=== PATIENT | female | born 1935 | race Caucasian/White ===

== ENCOUNTER → 2016-12-05 | Outpatient (CLI) | payer MEDICARE ==
[~2016-12-05] MED LIST: /PANT40TA PO; ALEV220T26 PO; ANAS1TAB PO; BRIM2OPD OD; CALC500T36 PO; COUM2.5T17 PO; DORZ2OPD OU; LATA5OPD OD; MULTCAP PO; NAPR250T PO; PANT40TA2 PO; PERC5TAB12 PO; PRAV40TA2 PO; REST0.05 OU; TRAM50TA2 PO; TYLE325T5 PO; zioptan OU
--- NOTE | 2016-12-05 11:49 | RADONC ---
RADIATION ONCOLOGY FOLLOWUP NOTE DATE: 12/05/2016 CHART NUMBER: [id number] DIAGNOSIS: Right breast cancer. STAGE: IA, [id number]. ECOG PERFORMANCE STATUS: 0 FOLLOWUP NOTE: Ms. 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 The patient presents today reporting that she is doing quite well with no complaints at this time related to her radiation therapy or disease. She has no breast or bone pain. REVIEW OF SYSTEMS: The patient's review of systems is noncontributory. She denies nausea, vomiting, fevers, chills, night sweats, diplopia, headaches, anxiety or depression, anorexia, weight loss, visual disturbances, chest pain, urinary or bowel difficulties, bone pain, or neurological problems. PHYSICAL EXAMINATION: The patient is a well-developed, well-nourished white female in no acute distress. HEENT exam is normocephalic, atraumatic. Extraocular movements are intact. There is no palpable cervical, supraclavicular, infraclavicular, axillary, or inguinal lymphadenopathy present. Lungs are clear to auscultation and percussion. Heart has a regular rate and rhythm. Abdomen is benign with no hepatosplenomegaly, masses, or tenderness. Breast examination reveals no masses or discharge bilaterally. Skeletal examination reveals no tenderness to pressure or percussion of the bony skeleton. Extremities reveal no clubbing, cyanosis, or edema. Neurologic exam is grossly intact, as is the remainder of the physical examination. ASSESSMENT: The patient is clinically LIEN at this time and will be seen by us again in 6 months for further followup. She will also continue to be followed by her other physicians as well. cc: MD Freeman Velasquez MD Manoj Vora, MD
== END ==
LOC: M ONCR 09:48
PROVIDERS: ATTEND Radiology Radiation Oncology
DX: C50.511 Malignant neoplasm of lower-outer quadrant of right female breast (principal)

== ENCOUNTER → 2017-02-04 | Outpatient (CLI) | payer MEDICARE ==
[2017-02-04 12:03] LABS: MEAN CORPUSCULAR HGB CONC 33.6 g/dl (32.0-36.5); MEAN CORPUSCULAR VOLUME 95.4 fl (80.0-96.0); RED CELL DISTRIBUTION WIDTH 11.9 % (11.5-14.5); WHITE BLOOD COUNT 6.2 K/mm3 (4.0-10.0)
[2017-02-04 12:04] LABS: INR 0.88
[2017-02-04 12:38] LABS: ALBUMIN 3.6 GM/DL (3.2-5.2); ALBUMIN/GLOBULIN RATIO 1.24 (1.00-1.93); ALKALINE PHOSPHATASE 73 U/L (45-117); ALT/SGPT 15 U/L (12-78); ANION GAP 8 MEQ/L (8-16); AST/SGOT 11 U/L (15-37); BILIRUBIN,TOTAL 0.4 MG/DL (0.2-1.0); BLOOD UREA NITROGEN 15 MG/DL (7-18); CALCIUM LEVEL 8.8 MG/DL (8.8-10.2); CARBON DIOXIDE LEVEL 27 MEQ/L (21-32); CHLORIDE LEVEL 109 MEQ/L (98-107); CREATININE FOR GFR 0.87 MG/DL (0.55-1.02); GLOMERULAR FILTRATION RATE > 60.0 (>39); GLUCOSE, FASTING 90 MG/DL (83-110); POTASSIUM SERUM 3.9 MEQ/L (3.5-5.1); SODIUM LEVEL 144 MEQ/L (136-145); TOTAL PROTEIN 6.5 GM/DL (6.4-8.2)
--- NOTE | 2017-02-04 13:04 | REP ---
PA and lateral chest: Comparison is 10/04/2014. The lung mccoy are clear. The cardiac size is normal The ashley, mediastinum, and bony thorax are unremarkable. Faintly visible surgical clips are again noted in the right axilla. There is thoracic scoliosis convex right. Impression: Negative PA and lateral chest. There is no interval change. Signed by Dylan Greco MD 02/04/2017 12:56 P
--- NOTE | 2017-02-06 21:39 | ECGEPIP ---
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
== END ==
LOC: M ADMPAT 10:36
PROVIDERS: ATTEND Orthopaedic Surgery
DX: M17.12 Unilateral primary osteoarthritis, left knee (principal); Z79.01 Long term (current) use of anticoagulants

== ENCOUNTER 2017-02-18 09:45 | Inpatient (IN) | payer MEDICARE ==
[2017-02-04 11:36] VITALS: BP 126/86
--- NOTE | 2017-02-12 10:08 | HPE ---
DATE OF ADMISSION: 02/18/2017 ATTENDING PHYSICIAN: Dr. Darden CHIEF COMPLAINT: Left knee pain and stiffness. HISTORY: This a pleasant 81-year-old female patient with progressively worsening left knee pain and stiffness. She has failed to improve with conservative management. She has pain with weightbearing activities and activities of daily living. She has elected for surgery for continued symptoms. She has consented for a left total knee arthroplasty by Dr. Darden. X-rays are notable for end-stage degenerative changes of the left knee. Medical optimization with Dr. Greene, not present for review today. ALLERGIES: None. CURRENT MEDICATIONS: - Zioptan 0.0015% 1 drop in each eye twice a day - adult multivitamin - calcium 600 mg 1 tablet twice a day - pantoprazole 40 mg 1 tablet once per day - anastrozole 1 mg 1 tablet once per day - pravastatin 40 mg 1 tablet once per day - dorzolamide 2% 1 drop in the right eye twice a day She will bring her eye drops to the hospital. She knows not to use NSAIDS prior to surgery. MEDICAL HISTORY (Includes): 1. Symptomatic osteoarthritis left knee. 2. Elevated cholesterol. 3. Glaucoma. 4. Gastric reflux disease. SURGERY HISTORY (Includes): 1. Gallbladder removed. 2. Lumpectomy. FAMILY HISTORY: Noncontributory. SOCIAL HISTORY: She does not smoke. She does not use alcohol. She is retired. REVIEW OF SYSTEMS: Denies fever or chills. Denies chest pain, shortness breath or cough. Denies difficulty breathing. Denies abdominal pain. Denies nausea or vomiting. Denies chest pain. Denies shortness breath. Denies recent URI or UTI symptoms. Denies change in bowel or bladder habits. Denies nausea or vomiting. Has persistent pain in her left knee with weightbearing activities. PHYSICAL EXAMINATION: Today, reveals an alert, well-nourished, well-developed female patient. She ambulates with a slight limping gait favoring her left side. She does not use assistive devices. Her mood and affect are appropriate for the situation. Examination of the left knee reveals the skin to be intact. No erythema, edema or ecchymosis. Good knee range of motion. Stable to varus and valgus stress. Some irritability at the extremes of range of motion. Tenderness mainly medially. The calf is soft and nontender to palpation. She can sensate light touch. Neck is supple without adenopathy or jugular venous distention (JVD). Lungs are clear to auscultation without rales or wheeze. Heart: Regular rate and rhythm. Abdomen: Bowel sounds are present. Height 63 inches. Weight 153 pounds. Temperature 98.3. Pulse 76. Respirations 16. Blood pressure 134/80. LABORATORY DATA: PT 12.0. INR 0.88. Urine culture no growth. Sed rate 25. Urinalysis 1+ blood, otherwise within normal limits. Nasal culture normal wolf. Glucose 90, BUN 15, creatinine 0.87. Sodium 144, potassium 3.9. WBC count 6.2, RBC count 3.9, hemoglobin 12.8, hematocrit 38.0. EKG sinus rhythm. Chest x-ray no acute cardiopulmonary disease process noted. IMPRESSION: Symptomatic osteoarthritis left knee. PLAN: Consented for a left total knee arthroplasty by Dr. Darden.
[~2017-02-18] VITALS: Ht 158.8 cm; Wt 71.2 kg
[~2017-02-18 09:45] MED LIST changes: -PERC5TAB12 PO
[2017-02-18] MEDS ORDERED: LR 1,000 ML IV ONE (11:30)
[2017-02-18] MEDS ORDERED: ceFAZolin SOD 1 GM in D5W MINI-BAG PLUS 50 ML IV ONE (11:45)
[2017-02-18] MEDS ORDERED: ANAS1TAB PO (12:00)
[2017-02-18] MEDS ORDERED: fentaNYL 100 MCG/2 ML INJECTION (J3010) As Ordered ONE ×2 (13:35→16:24)
[2017-02-18] MEDS ORDERED: MIDAZOLAM INJ 2 MG/2 ML VIAL (J2250) As Ordered ONE ×2 (13:35→15:04)
[2017-02-18] MEDS ORDERED: EPINEPHrine INJ 1 MG/ML 1ML AMP As Ordered ONE (14:28)
[2017-02-18] MEDS ORDERED: TRANEXAMIC ACID 100 MG/ML 10ML VIAL As Ordered ONE (14:28)
[2017-02-18] MEDS ORDERED: ceFAZolin 1GM INJ (J0690) As Ordered ONE (14:28)
[2017-02-18] MEDS ORDERED: BUPIVACAINE LIPOSOME/PF 1.3% 20 ML VIAL (13.3MG/ML)(EXPAREL) As Ordered ONE (14:28)
[2017-02-18] MEDS ORDERED: fentaNYL 100 MCG/2 ML INJECTION (J3010) IV ONE ×2 (14:30→14:45)
[2017-02-18] MEDS ORDERED: MIDAZOLAM INJ 2 MG/2 ML VIAL (J2250) IV ONE ×2 (14:30→14:45)
[2017-02-18] MEDS ORDERED: KETAMINE HCL 200 MG/20 ML VIAL As Ordered ONE (15:31)
[2017-02-18] MEDS ORDERED: MORPHINE 1MG/ML IN 0.9% NACL 100ML IV BAG As Ordered ONE (16:24)
[2017-02-18] MEDS ORDERED: PERCOCET 5MG/325MG TAB As Ordered ONE (16:52)
[2017-02-18] MEDS ORDERED: MORPHINE 10 MG/ML 1ML VIAL As Ordered ONE (16:52)
[2017-02-18] MEDS ORDERED: fentaNYL 100 MCG/2 ML INJECTION (J3010) IV PRN (17:00)
[2017-02-18] MEDS ORDERED: LR 1,000 ML IV SCH (17:00)
[2017-02-18] MEDS ORDERED: MORPHINE 1MG/ML IN 0.9% NACL 100ML IV BAG IV PRN (17:00)
[2017-02-18] MEDS ORDERED: METOCLOPRAMIDE INJ 10MG/2ML VIAL (J2765) IV PRN (17:00)
[2017-02-18] MEDS ORDERED: NALOXONE INJ 0.4 MG/1 ML VIAL (J2310) IV PRN (17:00)
[2017-02-18] MEDS ORDERED: ONDANSETRON 4MG/2ML VIAL (J2405) IV PRN ×3 (17:00)
[2017-02-18] MEDS ORDERED: WARFARIN SOD 5 MG TAB PO ONE (17:00)
[2017-02-18] MEDS ORDERED: ACETAMINOPHEN TAB 650MG DOSE (2X325MG) PO PRN (17:00)
[2017-02-18] MEDS ORDERED: MORPHINE 2 MG/ML 1ML SYRINGE IV PRN (17:00)
[2017-02-18] MEDS ORDERED: EPIDURAL/PCA KEYS XX PRN (17:00)
[2017-02-18] MEDS ORDERED: NALBUPHINE HCL 10 MG/ML AMP (J2300) IV PRN (17:00)
[2017-02-18] MEDS ORDERED: PERCOCET 5MG/325MG TAB PO PRN (17:00)
[2017-02-18] MEDS ORDERED: diphenhydrAMINE INJ 50MG/ML VIAL (J1200) IV PRN (17:00)
[2017-02-18] MEDS ORDERED: FLEET ENEMA PR PRN (17:00)
[2017-02-18] MEDS: LR 1,000 ML IV SCH (18:25)
[2017-02-18 19:00] VITALS: BP 133/74
[2017-02-18 20:00] VITALS: BP 118/64
[2017-02-18] MEDS: LATANOPROST 0.005% OPHTH SOLN 2.5 ML OU SCH (20:00)
[2017-02-18] MEDS: PRAVASTATIN 20 MG TAB PO SCH (20:00)
[2017-02-18] MEDS: DORZOLAMIDE 2% OPHTH SOLN 10 ML BTL OU SCH (20:01)
[2017-02-18 20:05] VITALS: O2SAT 96
--- NOTE | 2017-02-18 20:40 | IPNPDOC ---
Subjective Date Seen The patient was seen on 02/18/17. Subjective Chief Complaint/HPI The patient is a 81-year-old female admitted with a reason for visit of Left Knee Arthritis. Events since last encounter Patient having some lower extremity pain, no chest pain, not short of breath, not a particularly useful historian Objective Physical Examination General Exam: Positive: Alert (sleepy in postop area) ENT Exam: Positive: Mucous membr. moist/pink Chest Exam: Positive: Diminished, Negative: Rales, Rhonchi, Wheezing Heart Exam: Positive: Rate Normal, Regular Rhythm Abdomen Exam: Positive: BS Hypoactive, Soft, Negative: Tenderness Assessment /Plan Problems (1) Osteoarthritis Status: Acute Problem Text: pain management, dvt prophylaxis, gi regimen, discharge per ortho (2) HLD (hyperlipidemia) Status: Chronic Problem Text: continue statin (3) History of breast cancer Status: Chronic Problem Text: continue anastrozole (from home) (4) GERD (gastroesophageal reflux disease) Status: Chronic Problem Text: continue PPI Plan/VTE VTE Prophylaxis Ordered?: Yes VS, I&O, 24H, Fishbone Vital Signs/I&O Vital Signs Date Time Temp Pulse Resp B/P (MAP) Pulse Ox O2 Delivery O2 Flow Rate FiO2 02/18/17 18:00 Nasal Cannula 2.0 02/18/17 17:45 97.1 67 16 123/77 (92) 96 RATNA TERAN MD Feb 18, 2017 20:40
[2017-02-18 21:00] VITALS: BP 114/57
[2017-02-18 22:00] VITALS: BP 109/62
[2017-02-18] MEDS: ceFAZolin SOD 1 GM in D5W MINI-BAG PLUS 50 ML IV SCH (22:20)
[2017-02-19 02:00] VITALS: BP 106/56
[2017-02-19 06:00] VITALS: BP 118/62
[2017-02-19] MEDS: LR 1,000 ML IV SCH (06:20)
[2017-02-19] MEDS: ceFAZolin SOD 1 GM in D5W MINI-BAG PLUS 50 ML IV SCH (06:24)
[2017-02-19] MEDS ORDERED: PERCOCET 5MG/325MG TAB PO PRN (06:45)
[2017-02-19 07:37] LABS: MEAN CORPUSCULAR HEMOGLOBIN 32.9 pg (27.0-33.0); MEAN CORPUSCULAR HGB CONC 34.5 g/dl (32.0-36.5); MEAN CORPUSCULAR VOLUME 95.2 fl (80.0-96.0); RED CELL DISTRIBUTION WIDTH 11.7 % (11.5-14.5); WHITE BLOOD COUNT 8.2 K/mm3 (4.0-10.0)
[2017-02-19 07:41] LABS: INR 1.33
[2017-02-19] MEDS: MIRALAX *UNIT DOSE* 17GM PACKET PO SCH (09:00)
[2017-02-19] MEDS: MOM 30ML SUSPENSION UDC PO SCH (09:00)
[2017-02-19] MEDS: PANTOPRAZOLE 40MG TAB (PROTONIX) PO SCH (09:07)
[2017-02-19] MEDS: ONDANSETRON 4 MG TAB (S0181) PO PRN ×2 (09:07→17:28)
[2017-02-19] MEDS: LATANOPROST 0.005% OPHTH SOLN 2.5 ML OU SCH ×2 (09:08→21:24)
[2017-02-19] MEDS: SENOKOT S TAB PO SCH ×2 (09:08→21:23)
[2017-02-19] MEDS: PERCOCET 5MG/325MG TAB PO PRN ×3 (09:09→21:24)
[2017-02-19] MEDS ORDERED: ONDANSETRON 4MG/2ML VIAL (J2405) IV PRN (09:30)
[2017-02-19 10:00] VITALS: BP 126/62
[2017-02-19] MEDS: DORZOLAMIDE 2% OPHTH SOLN 10 ML BTL OU SCH ×2 (10:15→21:24)
--- NOTE | 2017-02-19 10:29 | REP ---
LEFT KNEE SERIES: Two views. HISTORY: Check placement. FINDINGS: A left knee arthroplasty has been installed. Anterior skin enid are seen. The patellar, tibial, and femoral prosthetic components are well aligned with respect to each other and with respect to their [place] bones. There is some periarticular soft tissue swelling and postoperative emphysema. Signed by Sky Gaspar MD 02/19/2017 11:07 A
--- NOTE | 2017-02-19 11:05 | IPNPDOC ---
Subjective Date Seen The patient was seen on 02/19/17. Subjective Chief Complaint/HPI The patient is a 81-year-old female admitted with a reason for visit of Left Knee Arthritis. Events since last encounter no complaints today. no chest pain or sob , no abdominal pain , no nausea or vomiting or diarrhea. Objective Physical Examination General Exam: Positive: Alert (sleepy in postop area) Eye Exam: Positive: PERRLA, Conjunctiva & lids normal, EOMI, Negative: Sclera icteric ENT Exam: Positive: Mucous membr. moist/pink Chest Exam: Positive: Diminished, Negative: Rales, Rhonchi, Wheezing Heart Exam: Positive: Rate Normal, Regular Rhythm Abdomen Exam: Positive: BS Hypoactive, Soft, Negative: Tenderness Extremity Exam: Positive: Normal pulses, Negative: Clubbing, Cyanosis, Edema Assessment /Plan Problems (1) S/P total knee arthroplasty Status: Acute Problem Text: left total knee arthroplasty elective for advanced osteoarthritis. pain management, dvt prophylaxis, gi regimen, discharge per ortho (2) HLD (hyperlipidemia) Status: Chronic Problem Text: continue statin (3) History of breast cancer Status: Chronic Problem Text: continue anastrozole (from home) (4) GERD (gastroesophageal reflux disease) Status: Chronic Problem Text: continue PPI (5) Glaucoma Status: Chronic Plan/VTE VTE Prophylaxis Ordered?: Yes VS, I&O, 24H, Fishbone Vital Signs/I&O Vital Signs Date Time Temp Pulse Resp B/P (MAP) Pulse Ox O2 Delivery O2 Flow Rate FiO2 02/19/17 09:39 16 02/19/17 06:00 97.9 64 118/62 (80) 98 Nasal Cannula 2.0 02/18/17 20:05 96 I&O- Last 24 Hours up to 6 AM 02/19/17 06:00 Intake Total 2310 ml Output Total 750 ml Balance 1560 ml Laboratory Data 24H LABS Laboratory Tests 2 02/19/17 07:14: Prothrombin Time 16.8H, Prothromb Time International Ratio 1.33 CBC/BMP Laboratory Tests 02/19/17 07:14 Red Blood Count 3.09 L, Mean Corpuscular Volume 95.2, Mean Corpuscular Hemoglobin 32.9, Mean Corpuscular Hemoglobin Concent 34.5, Red Cell Distribution Width 11.7 CORDELL ZAPATA MD Feb 19, 2017 11:05
--- NOTE | 2017-02-19 11:51 | IPN ---
DATE: 02/18/2017 The patient is seen and examined. She wished to go ahead with a left total knee arthroplasty. She understands the nature of this. The risks of bleeding, infection, damage to nerves, vessels, persistent pain, wear loosening, blood clots, medical problems, among others. She has had a preop medical clearance. She has been through a recent contralateral knee replacement.
[2017-02-19 14:00] VITALS: BP 125/67
[2017-02-19] MEDS ORDERED: WARFARIN SOD 5 MG TAB PO ONE (17:00)
--- NOTE | 2017-02-19 20:57 | RO ---
DATE OF PROCEDURE: 02/18/2017 PREOPERATIVE DIAGNOSIS: Left knee osteoarthritis. POSTOPERATIVE DIAGNOSIS: Left knee osteoarthritis. PROCEDURE: Left total knee arthroplasty using a PFC rotating platform size 2.5 femur 2.5 tibia 32 patellar button and 12.5 polyethylene. SURGEON: Dr. Rohith Darden. ASSOCIATE ATTORNEY: Skinny Alford ANESTHESIA: Spinal ESTIMATED BLOOD LOSS: Less than 50. COMPLICATIONS: None. INDICATIONS: This is a 81-year-old woman who has had some persistent left knee pain related to underlying arthritis. She did well with a right knee replacement in the past and wished to go ahead with the left knee replacement having failed conservative management. She understood the nature of procedure the risks of bleeding, infection, damage to nerves, vessels, persistent pain, wear, loosening, blood clots, medical problems, among others. PROCEDURE: The patient taken to the operating room and placed in supine position after spinal anesthesia was induced. The left lower extremity was prepped and draped in the usual sterile fashion. A time-out was performed. Tourniquet was inflated. I created a longitudinal incision over the anterior aspect of the left knee. Sharp dissection was carried down through subcutaneous tissue to create a medial parapatellar arthrotomy per routine, everted the patella, flexed the knee up removed any osteophytes and used the canal initiating reamer followed by the intramedullary reamer set at 5 and valgus 10 mm cut and pinned this in place on the distal aspect of the femur. I brought it back 2 more mm because she had a flexion contracture and made the distal femoral cut protecting soft tissues. I sized it to be between a 3 and 2.5. The external rotation guide was placed and pinned and then the 4-in-1 cutting block was placed and the remaining four cuts were made protecting soft tissues. I used the tibial guide. The appropriate amount of posterior slope and valgus, pinned this in place checked it with the external alignment guide and then removed 4 mm off the low side 10 mm off the high side with the oscillating saw. Then rate and cost analyst was used, we removed soft tissue and some osteophytes from both sides of the knee. I then used the spacer blocks and a size 12.5 seemed to be the most appropriate fit. In flexion/extension there was excellent soft tissue balance, excellent alignment and range of motion. The tibial tray was then placed, sized to be a 2.5. This was pinned in place, drilled broached. The trial components were then placed and the components fit very nicely and alignment is good and the fit was excellent. Soft tissue balance was excellent. We then freehand cut the patella and removed about 6-7 mm of bone from the patella and sized to be a 32. Drill holes were placed and the trial button was placed. We put the knee through range of motion and again very satisfied with the components. The drill holes were then placed at the end of the femur and then we removed the trial components, irrigated copiously. I placed some of the long acting Marcaine suspension solution in the capsule region withdrawing so I did not inject intravascularly and around the periosteum. The bony surfaces were irrigated, dried carefully. The assistant general manager prepared the bone cement in modern technique. I then cemented on the tibial component packed in place removed excess bone. The tibial tray was placed followed by the femoral component cemented in place the usual fashion. Removed excess bone cement. We cemented on the patella, held this in place with a patellar clamp and removed excess bone cement. I completed the injection for postoperative pain control throughout the knee and the capsular region and the quadriceps patellar fat pad region and etc. Irrigation was performed. Once the cement hardened I removed the patellar clamp. Closed the deep layer was some interrupted #1 Vicryl sutures followed by a running Stratafix suture starting at the midpoint and working in each direction obtaining a watertight closure. Final irrigation was performed, closed subcu with 2-0 Vicryl. The skin with enid. The knee had excellent range of motion and excellent alignment and full extension. Sterile dressing was applied. Tourniquet was deflated. She was taken to recovery room in stable condition. No known complications. The plan will be routine postop. The assistant general manager was instrumental in holding retractors and making one of the bone cuts and assisting in closure.
[2017-02-19] MEDS: PRAVASTATIN 20 MG TAB PO SCH (21:23)
[2017-02-19 22:00] VITALS: BP 110/52
[2017-02-20] MEDS: PERCOCET 5MG/325MG TAB PO PRN (04:23)
[2017-02-20 06:00] VITALS: BP 110/58
[2017-02-20 06:39] LABS: MEAN CORPUSCULAR VOLUME 97.1 fl (80.0-96.0); RED CELL DISTRIBUTION WIDTH 12.3 % (11.5-14.5); WHITE BLOOD COUNT 7.7 K/mm3 (4.0-10.0)
[2017-02-20 06:56] LABS: ANION GAP 8 MEQ/L (8-16); BLOOD UREA NITROGEN 14 MG/DL (7-18); CARBON DIOXIDE LEVEL 26 MEQ/L (21-32); CHLORIDE LEVEL 110 MEQ/L (98-107); GLOMERULAR FILTRATION RATE > 60.0 (>39); GLUCOSE, FASTING 97 MG/DL (83-110); POTASSIUM SERUM 3.8 MEQ/L (3.5-5.1); SODIUM LEVEL 144 MEQ/L (136-145)
[2017-02-20 06:57] LABS: INR 2.54
[2017-02-20] MEDS: LATANOPROST 0.005% OPHTH SOLN 2.5 ML OU SCH (08:09)
[2017-02-20] MEDS: MIRALAX *UNIT DOSE* 17GM PACKET PO SCH (08:09)
[2017-02-20] MEDS: DORZOLAMIDE 2% OPHTH SOLN 10 ML BTL OU SCH (08:09)
[2017-02-20] MEDS: MOM 30ML SUSPENSION UDC PO SCH (08:09)
[2017-02-20] MEDS: PANTOPRAZOLE 40MG TAB (PROTONIX) PO SCH (08:09)
[2017-02-20] MEDS: SENOKOT S TAB PO SCH (08:09)
[2017-02-20] MEDS ORDERED: COUM2.5T17 PO (08:49)
[2017-02-20] MEDS ORDERED: PERC5TAB12 PO (08:49)
[2017-02-20] MEDS ORDERED: dexameTHASONE 10 MG/1 ML VIAL PRES.FREE (J1100) ONE (09:14)
[2017-02-20] MEDS ORDERED: ROPIvacaine 0.5% 30 ML INJECTION (J2795) ONE (09:14)
[2017-02-20] MEDS ORDERED: LIDOCAINE 1% MDV 20ML VIAL ONE (09:14)
--- NOTE | 2017-02-20 10:59 | IPNPDOC ---
Subjective Date Seen The patient was seen on 02/20/17. Subjective Chief Complaint/HPI The patient is a 81-year-old female admitted with a reason for visit of Left Knee Arthritis. Events since last encounter patient feeling well , no complaints this am , no fever or chills, no chest pain or sob , no abdominal pain ,nausea or vomiting. Objective Physical Examination General Exam: Positive: Alert (sleepy in postop area) Eye Exam: Positive: PERRLA, Conjunctiva & lids normal, EOMI, Negative: Sclera icteric ENT Exam: Positive: Mucous membr. moist/pink Chest Exam: Positive: Diminished, Negative: Rales, Rhonchi, Wheezing Heart Exam: Positive: Rate Normal, Regular Rhythm Abdomen Exam: Positive: BS Hypoactive, Soft, Negative: Tenderness Extremity Exam: Positive: Normal pulses, Negative: Clubbing, Cyanosis, Edema Assessment /Plan Problems (1) S/P total knee arthroplasty Status: Acute Problem Text: left total knee arthroplasty elective for advanced osteoarthritis. pain management, dvt prophylaxis, gi regimen, discharge per ortho (2) HLD (hyperlipidemia) Status: Chronic Problem Text: continue statin (3) History of breast cancer Status: Chronic Problem Text: continue anastrozole (from home) (4) GERD (gastroesophageal reflux disease) Status: Chronic Problem Text: continue PPI (5) Glaucoma Status: Chronic Plan/VTE VTE Prophylaxis Ordered?: Yes VS, I&O, [facility]O Vital Signs Date Time Temp Pulse Resp B/P (MAP) Pulse Ox O2 Delivery O2 Flow Rate FiO2 02/20/17 10:16 Room Air 02/20/17 06:00 98.8 71 18 110/58 (75) 94 02/19/17 06:00 2.0 02/18/17 20:05 96 I&O- Last 24 Hours up to 6 AM 02/20/17 05:59 Intake Total 2040 ml Output Total 1800 ml Balance 240 ml Laboratory Data 24H LABS Laboratory Tests 2 02/20/17 06:24: Prothrombin Time 28.4H, Prothromb Time International Ratio 2.54, Anion Gap 8, Glomerular Filtration Rate > 60.0, Blood Urea Nitrogen 14, Creatinine 0.80, Sodium Level 144, Potassium Level 3.8, Chloride Level 110H, Carbon Dioxide Level 26, Calcium Level 8.0L CBC/BMP Laboratory Tests 02/20/17 06:24 Red Blood Count 3.00 L, Mean Corpuscular Volume 97.1 H, Mean Corpuscular Hemoglobin 33.0, Mean Corpuscular Hemoglobin Concent 34.0, Red Cell Distribution Width 12.3, Calcium Level 8.0 L CORDELL ZAPATA MD Feb 20, 2017 10:59
--- NOTE | 2017-02-23 12:24 | DSES ---
DATE OF ADMISSION: 02/18/2017 DATE OF DISCHARGE: 02/20/2017 ATTENDING PHYSICIAN: Dr. Rohith Darden ADMITTING DIAGNOSIS: Left knee osteoarthritis. OTHER DIAGNOSES: 1. Elevated cholesterol. 2. Glaucoma. 3. Gastroesophageal reflux disease (GERD). DISCHARGE DIAGNOSIS: Left knee osteoarthritis, status post left total knee arthroplasty. HISTORY: The patient is a 81-year-old female with progressively worsening left knee pain and stiffness. She failed to improve with conservative measures, so she elected for a left total knee arthroplasty with Dr. Darden. OPERATION PERFORMED: Left total knee arthroplasty. HOSPITAL COURSE: The patient underwent a left total knee arthroplasty under spinal anesthesia, which was uneventful. Her hospital course was without complication, and she was up with physical therapy per their protocol, weightbearing as tolerated on the left lower extremity. She was discharged on oral pain medications, and will resume her preoperative medications and diet. The patient will take her Coumadin and use her thromboembolic deterrent stockings for 30 days postoperatively to prevent deep venous thrombosis. She will followup in our office in 12-14 days for a wound check and staple removal. She is encouraged to contact our office sooner if there is any increased pain, drainage, redness, numbness or tingling in the extremity, fever greater than 101 degrees or any other further concerns. Please see medical record for additional details. LYNN
== END 2017-02-20 12:15 | disposition home health service (06) | DRG 470 ==
LOC: M OR 11:08 → M MS5PR 18:00
PROVIDERS: ADMIT Orthopaedic Surgery; ATTEND Orthopaedic Surgery
PROC: 0SRD0J9 Replacement of Left Knee Joint with Synthetic Substitute, Cemented, Open Approach (ICD-10-PCS; principal; 2017-02-18 14:00)
DX: M17.12 Unilateral primary osteoarthritis, left knee (principal); Z79.899 Other long term (current) drug therapy; E78.00 Pure hypercholesterolemia, unspecified; K21.9 Gastro-esophageal reflux disease without esophagitis; H40.9 Unspecified glaucoma; E78.5 Hyperlipidemia, unspecified; Z85.3 Personal history of malignant neoplasm of breast

== ENCOUNTER → 2017-06-19 | Outpatient (CLI) | payer MEDICARE ==
[~2017-06-19] MED LIST changes: +PERC5TAB12 PO
--- NOTE | 2017-06-22 11:22 | RADONC ---
RADIATION ONCOLOGY FOLLOWUP NOTE DATE OF SERVICE: 06/19/2017 CHART NUMBER: [id number] DIAGNOSIS: Right breast cancer. STAGE: IA, T1c N0M0 ECOG PERFORMANCE STATUS: 0. FOLLOWUP NOTE: Ms. 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 The patient presents today reporting that she is doing quite well with no complaints at this time related to her radiation therapy or disease. She has no breast or bone pain. REVIEW OF SYSTEMS: The patient's review of systems is noncontributory. She denies nausea, vomiting, fevers, chills, night sweats, diplopia, headaches, anxiety or depression, anorexia, weight loss, visual disturbances, chest pain, urinary or bowel difficulties, bone pain, or neurological problems. PHYSICAL EXAMINATION: The patient is a well-developed, well-nourished female in no acute distress. HEENT examination is normocephalic, atraumatic. Extraocular movements are intact. There is no palpable cervical, supraclavicular, infraclavicular, axillary, or inguinal lymphadenopathy present. Lungs are clear to auscultation and percussion. Heart has a regular rate and rhythm. Abdomen is benign with no hepatosplenomegaly, masses, or tenderness. Breast examination reveals no masses or discharge bilaterally. Skeletal examination reveals no tenderness to pressure or percussion of the bony skeleton. Extremities reveal no clubbing, cyanosis, or edema. Neurologic examination is grossly intact, as is the remainder of the physical examination. ASSESSMENT: The patient is clinically LIEN at this time and will be seen by us again in 6 months for further followup. She will also continue to be followed by her other physicians, as well. cc: MD Freeman Velasquez MD Manoj Vora, MD
== END ==
LOC: M ONCR 10:01
PROVIDERS: ATTEND Radiology Radiation Oncology
DX: C50.511 Malignant neoplasm of lower-outer quadrant of right female breast (principal)

== ENCOUNTER 2017-10-30 06:15 | Day surgery (SDC) | payer MEDICARE ==
[2017-10-30] MEDS ORDERED: MIDAZOLAM INJ 2 MG/2 ML VIAL (J2250) As Ordered ×2 (06:59)
[2017-10-30] MEDS ORDERED: fentaNYL 100 MCG/2 ML INJECTION (J3010) As Ordered ×2 (07:00)
[2017-10-30] MEDS: LIDOCAINE 3.5 % 1ML OPHTH TOPICAL GEL OU ×2 (07:05)
[2017-10-30] MEDS: OFLOXACIN 0.3 % (OCUFLOX) OPTH SOL 5ML OS ×2 (07:10)
[2017-10-30] MEDS: mitoMYcin 0.2 MG/VIAL KIT FOR OPHTHALMIC USE (J7315 PER 0.2MG) As Ordered ×2 (08:38)
[2017-10-30] MEDS ORDERED: SCOPOLAMINE 1MG TRANSDERMAL PATCH As Ordered ×2 (08:50)
[2017-10-30] MEDS: SCOPOLAMINE 1MG TRANSDERMAL PATCH TOP ×2 (08:50)
[2017-10-30] MEDS ORDERED: ONDANSETRON 4MG/2ML VIAL (J2405) As Ordered ×2 (09:00)
[2017-10-30] MEDS ORDERED: LIDOCAINE 1% MDV 20ML VIAL SQ ×2 (09:00)
[2017-10-30] MEDS: POVIDONE-IODINE 5% OPHTH PREP SOL 30ML As Ordered ×2 (09:00)
[2017-10-30] MEDS ORDERED: dexameTHASONE 4 MG/ML 1ML VIAL (J1100) As Ordered ×2 (09:00)
[2017-10-30] MEDS: LIDOCAINE 2% W/EPIN INJ 20ML **PRES FREE As Ordered ×2 (09:03)
[2017-10-30] MEDS: HEALON DUET (HEALON 10MG/ML 0.55ML & HEALON ENDOCOAT 30MG/ML 0.85ML) As Ordered ×2 (09:43)
[2017-10-30] MEDS: TOBRADEX OPHTH OINT 3.5 GM As Ordered ×2 (10:06)
[2017-10-30] MEDS ORDERED: ACETAMINOPHEN TAB 650MG DOSE (2X325MG) PO ×2 (10:30)
== END 2017-10-30 11:35 | disposition home or self-care (01) ==
LOC: M SDC 06:15
DX: H40.1120 Primary open-angle glaucoma, left eye, stage unspecified (principal); T85.398A Other mechanical complication of other ocular prosthetic devices, implants and grafts, initial encounter; Y77.2 Prosthetic and other implants, materials and accessory ophthalmic devices associated with adverse incidents; E78.00 Pure hypercholesterolemia, unspecified; Z85.3 Personal history of malignant neoplasm of breast; K21.9 Gastro-esophageal reflux disease without esophagitis; Z91.013 Allergy to seafood; Z79.899 Other long term (current) drug therapy
CPT/HCPCS: 66185

== ENCOUNTER → 2018-01-08 | Outpatient (CLI) | payer MEDICARE | LOC: M ONCR 14:01 | DX: C50.511 Malignant neoplasm of lower-outer quadrant of right female breast (principal) | CPT/HCPCS: G0463 ==

== ENCOUNTER 2018-03-10 05:55 | Day surgery (SDC) | payer MEDICARE ==
[2018-03-10] MEDS ORDERED: SLF 3 ML SYR IV ×2 (06:00)
[2018-03-10] MEDS ORDERED: LIDOCAINE 1% MDV 20ML VIAL SQ (06:00)
[2018-03-10] MEDS ORDERED: fentaNYL 100 MCG/2 ML INJECTION (J3010) As Ordered (06:54)
[2018-03-10] MEDS ORDERED: ONDANSETRON 4MG/2ML VIAL (J2405) As Ordered (06:54)
[2018-03-10] MEDS ORDERED: MIDAZOLAM INJ 2 MG/2 ML VIAL (J2250) As Ordered (06:54)
[2018-03-10] MEDS: OFLOXACIN 0.3 % (OCUFLOX) OPTH SOL 5ML OS (07:01)
[2018-03-10] MEDS: LIDOCAINE 3.5 % 1ML OPHTH TOPICAL GEL OU (07:01)
[2018-03-10] MEDS ORDERED: CYCLOPENTOLATE 2% OPHTH SOLN 2ML BTL As Ordered (07:23)
[2018-03-10] MEDS ORDERED: PHENYLEPHRINE 2.5% OPHTH SOL 2ML As Ordered (07:23)
[2018-03-10] MEDS: LIDOCAINE 2% W/EPIN INJ 20ML **PRES FREE As Ordered ×2 (07:39→08:00)
[2018-03-10] MEDS: POVIDONE-IODINE 5% OPHTH PREP SOL 30ML As Ordered (07:39)
[2018-03-10] MEDS ORDERED: dexameTHASONE 4 MG/ML 1ML VIAL (J1100) As Ordered (07:41)
[2018-03-10] MEDS: PHENYLEPHRINE 2.5% OPHTH SOL 2ML OS (07:42)
[2018-03-10] MEDS: CYCLOPENTOLATE 2% OPHTH SOLN 2ML BTL OS (07:42)
[2018-03-10] MEDS: BALANCED SALT IRRIGATION SOLUTION 500ML BAG (FOR OR EYE MACHINE) As Ordered (07:45)
[2018-03-10] MEDS: BALANCED SALT IRRIGATION SOL 500ML GLASS BOTTLE (FOR OR EYE COMPOUND) As Ordered (07:45)
[2018-03-10] MEDS: HEALON DUET (HEALON 10MG/ML 0.55ML & HEALON ENDOCOAT 30MG/ML 0.85ML) As Ordered (07:45)
[2018-03-10] MEDS ORDERED: ONDANSETRON 4MG/2ML VIAL (J2405) IV (07:45)
[2018-03-10] MEDS: CEFUROXIME 1MG/0.1ML INTRACAMERAL INJ As Ordered (07:53)
[2018-03-10] MEDS: MOXIFLOXACIN IN BSS 0.25MG/0.25ML INTRACAMERAL INJ (OR EYE ONLY)(J2280) As Ordered ×2 (07:57)
[2018-03-10] MEDS: BETAMETHASONE SOLUSPAN 6MG/ML INJ 5ML (J0702) As Ordered (07:58)
[2018-03-10] MEDS: TOBRAMYCIN INJ 80 MG/2 ML VIAL (J3260) As Ordered (07:58)
[2018-03-10] MEDS: TOBRADEX OPHTH OINT 3.5 GM As Ordered (07:59)
[2018-03-10] MEDS ORDERED: MOXIFLOXACIN IN BSS 0.25MG/0.25ML INTRACAMERAL INJ (OR EYE ONLY)(J2280) As Ordered (08:00)
== END 2018-03-10 09:35 | disposition home or self-care (01) ==
LOC: M SDC 05:55
DX: T85.398A Other mechanical complication of other ocular prosthetic devices, implants and grafts, initial encounter (principal); H40.9 Unspecified glaucoma; E78.00 Pure hypercholesterolemia, unspecified; K21.9 Gastro-esophageal reflux disease without esophagitis; M12.9 Arthropathy, unspecified; T88.59XD Other complications of anesthesia, subsequent encounter; Z91.013 Allergy to seafood; Z79.899 Other long term (current) drug therapy; Z85.3 Personal history of malignant neoplasm of breast; Z78.0 Asymptomatic menopausal state; Z92.21 Personal history of antineoplastic chemotherapy; Z96.653 Presence of artificial knee joint, bilateral; X58.XXXA Exposure to other specified factors, initial encounter; Y93.89 Activity, other specified; Y92.89 Other specified places as the place of occurrence of the external cause; Y99.8 Other external cause status
CPT/HCPCS: 66999

== ENCOUNTER 2018-10-20 05:59 | Day surgery (SDC) | payer MEDICARE ==
[~2018-10-20] VITALS: Ht 157.5 cm; Wt 69.4 kg
[~2018-10-20 05:59] MED LIST changes: -/PANT40TA PO; +ANAS1TAB2 PO; +CALC12504 PO; -CALC500T36 PO; +DORZ2SOL4 OU; +KETO0.5S2 OS; +LATA0.0013 OD; -LATA5OPD OD; +MURO5OIN OS; -PANT40TA2 PO; +PANT40TA3 PO; +PRED1SUS2 OS; +PROT1TAB2 PO; +REST0.05 OD; -REST0.05 OU; +SODI2OPD OS; +TAFLUPROST OD; +TIMO0.5S42 OU; +zioptan OD
[2018-10-20] MEDS ORDERED: MANNITOL 20% BAG 250 ML IV ONE (06:00)
[2018-10-20] MEDS ORDERED: ACETAMINOPHEN 325 MG TAB PO PRN (06:00)
[2018-10-20] MEDS ORDERED: FILTER 1.2 MICRON (ADULT TPN/MANNITOL/REMICADE) XX ONE (06:24)
[2018-10-20] MEDS ORDERED: TOBRAMYCIN INJ 80 MG/2 ML VIAL (J3260) As Ordered ONE (06:35)
[2018-10-20] MEDS ORDERED: BETAMETHASONE SOLUSPAN 6MG/ML INJ 5ML (J0702) As Ordered ONE (06:35)
[2018-10-20] MEDS ORDERED: TOBRADEX OPHTH OINT 3.5 GM As Ordered ONE (06:35)
[2018-10-20] MEDS ORDERED: AcetaZOLAMIDE 500MG INJECTION (J1120) IV ONE (07:00)
[2018-10-20] MEDS ORDERED: OFLOXACIN 0.3 % (OCUFLOX) OPTH SOL 5ML OS ONE (07:00)
[2018-10-20] MEDS ORDERED: LIDOCAINE 3.5 % 1ML OPHTH TOPICAL GEL OU ONE (07:00)
[2018-10-20] MEDS ORDERED: HEALON DUET PRO(HEALON 10MG/ML 0.55ML & HEALON ENDOCOAT 30MG/ML 0.85ML) As Ordered ONE (07:15)
[2018-10-20] MEDS ORDERED: POVIDONE-IODINE 5% OPHTH PREP SOL 30ML As Ordered ONE (07:24)
[2018-10-20] MEDS ORDERED: BALANCED SALT IRRIGATION SOL 500ML GLASS BOTTLE (FOR OR EYE COMPOUND) As Ordered ONE (07:27)
[2018-10-20] MEDS ORDERED: TIMOLOL MALEATE 0.5% OPHTH SOLN 5 ML As Ordered ONE (07:33)
[2018-10-20] MEDS ORDERED: LIDOCAINE PRES-FREE 2% 10ML AMP As Ordered ONE (07:36)
[2018-10-20] MEDS ORDERED: MIDAZOLAM INJ 2 MG/2 ML VIAL (J2250) As Ordered ONE (07:50)
[2018-10-20] MEDS ORDERED: dexameTHASONE 4 MG/ML 1ML VIAL (J1100) As Ordered ONE (07:50)
[2018-10-20] MEDS ORDERED: PROPOFOL 200 MG/20 ML VIAL As Ordered ONE (07:50)
[2018-10-20] MEDS ORDERED: METOCLOPRAMIDE INJ 10MG/2ML VIAL (J2765) As Ordered ONE (07:50)
[2018-10-20] MEDS ORDERED: fentaNYL 100 MCG/2 ML INJECTION (J3010) As Ordered ONE (07:50)
[2018-10-20] MEDS ORDERED: LIDOCAINE 2% INJ 100 MG/5 ML SDV (FOR ANES.) As Ordered ONE (07:50)
[2018-10-20] MEDS ORDERED: ONDANSETRON 4MG/2ML VIAL (J2405) As Ordered ONE (07:51)
[2018-10-20] MEDS ORDERED: ACETAMINOPHEN TAB 650MG DOSE (2X325MG) PO PRN (09:15)
[2018-10-20] MEDS ORDERED: ONDANSETRON 4MG/2ML VIAL (J2405) IV PRN (09:15)
[2018-10-20] MEDS ORDERED: LR 1,000 ML IV SCH (09:15)
[2018-10-20] MEDS ORDERED: TRIMETHOBENZAMIDE 300 MG CAP PO PRN (09:15)
[2018-10-20] MEDS ORDERED: METOCLOPRAMIDE INJ 10MG/2ML VIAL (J2765) IV PRN (09:15)
[2018-10-20] MEDS ORDERED: KETOROLAC 0.5% OPHTH SOLN OS ONE (09:15)
[2018-10-20 10:00] VITALS: BP 148/68
--- NOTE | 2018-10-20 11:59 | ECGEPIP ---
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
--- NOTE | 2018-11-18 06:42 | RO ---
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 POSTOPERATIVE DIAGNOSIS: Failed corneal graft left eye. PROCEDURE: Penetrating keratoplasty left eye. SURGEON: Dr. Shea GASSER MACHINE OPERATOR: None. ANESTHESIA: Retrobulbar anesthesia using 2% lidocaine with IV sedation. COMPLICATIONS: None. PROCEDURE IN DETAIL: Patient was brought to the operating room, laid in supine position. The eye was prepped and draped in a sterile fashion for ophthalmic surgery. A retrobulbar anesthesia was given in the form of 3.5 mL of 2% lidocaine. After eye massage for 7-8 minutes, the eye was then marked and a lid speculum was placed. Eye was then marked with a 12 corneal marker. Following which, 8.5 mm [place]-Coughlin trephine was used to trephinate the host cornea, which was then subsequently removed with the help of Aislinn blade and corneal scissors to the right and to the left. Prior to this, the donor cornea was examined and then prepped with the help of 9 mm corneal punch and was placed on the back table under the Optisol and EndoCoat. After the corneal tissue was removed from the patient, EndoCoat was placed in the anterior chamber and over the corneal rim and the corneal graft was then secured in place using six interrupted nylon sutures. This was followed by placing another six interrupted nylon sutures along the premarked cornea. All the knots were then buried. An anti-torque #10-0 nylon suture was then placed in between the interrupted sutures. The laxity was removed. Knot was tied and buried. Throughout the procedure, anterior chamber was maintained using balanced salt solution (BSS). At the end of the case, sub-Tenon triamcinolone and tobramycin injections were given. Lid speculum was removed. TobraDex ointment was applied. Eye was patched, and patient was returned to recovery room in stable condition.
== END 2018-10-20 10:05 | disposition home or self-care (01) ==
LOC: M SDC 05:59
PROVIDERS: ATTEND Ophthalmology
DX: T86.841 Corneal transplant failure (principal); H40.9 Unspecified glaucoma; E78.00 Pure hypercholesterolemia, unspecified; M06.9 Rheumatoid arthritis, unspecified; K21.9 Gastro-esophageal reflux disease without esophagitis; M12.9 Arthropathy, unspecified; Z91.013 Allergy to seafood; Z79.899 Other long term (current) drug therapy; Z96.1 Presence of intraocular lens; Z98.41 Cataract extraction status, right eye; Z98.42 Cataract extraction status, left eye; Z78.0 Asymptomatic menopausal state; Z92.3 Personal history of irradiation; Z85.3 Personal history of malignant neoplasm of breast; Z96.653 Presence of artificial knee joint, bilateral
CPT/HCPCS: 65730; 87070; 87075; 87102; 87205; 88300; 93005; J0702; J1100; J1120; J2250; J2405; J2765; J3010; J3260; V2785

== ENCOUNTER → 2024-08-21 | Outpatient (REF) | payer MEDICARE ==
[~2024-08-21] MED LIST changes: -CALC12504 PO; +CALC500T61 PO; +PANT40TA29 PO; -PANT40TA3 PO
== END ==
LOC: M SFHCDERM 16:27
PROVIDERS: ATTEND Nurse Practitioner Family
DX: T14.8XXA Other injury of unspecified body region, initial encounter (principal)

== ENCOUNTER → 2024-10-21 | Outpatient (REF) | payer MEDICARE | LOC: M SFHCADAM 11:42 | PROVIDERS: ATTEND Nurse Practitioner Family | DX: L12.0 Bullous pemphigoid (principal) ==

== ENCOUNTER → 2024-11-04 | Outpatient (REF) | payer MEDICARE | LOC: M SFHCADAM 14:20 | PROVIDERS: ATTEND Nurse Practitioner Family | DX: Z53.21 Procedure and treatment not carried out due to patient leaving prior to being seen by health care provider (principal) ==